=== PATIENT | male | born 1945 | race African-American/Black ===

== ENCOUNTER 2018-09-02 02:17 | Emergency (ER) | payer OTHER ==
[~2018-09-02] VITALS: Ht 182.9 cm; Wt 90.0 kg
[~2018-09-02 02:17] MED LIST: AMLO-511 PO; ATOR40TA28 PO; BENA20 PO; CARV25 PO; CLOP75TA3 PO; FERR-89 PO; GLYB5 PO; METF-960 PO; MULT1CAP32 PO
[2018-09-02] MEDS ORDERED: LOSA25TA41 PO (02:30)
[2018-09-02] MEDS ORDERED: GLIP5 PO (02:30)
[2018-09-02] MEDS ORDERED: HYDR25TA84 PO (02:30)
[2018-09-02] MEDS ORDERED: IOVERSOL 350 MG/ML 100 ML VIAL ONE (02:57)
[2018-09-02] MEDS ORDERED: SODIUM CHLORIDE 0.9% 100 ML ONE (02:57)
[2018-09-02 03:08] LABS: BASOPHILS % (AUTO) 0.5 % (0.0-2.0); EOSINOPHILS % (AUTO) 1.8 % (1.0-6.0); HEMATOCRIT 34.4 % (41-53); HEMOGLOBIN 10.7 g/dL (13.5-17.5); LYMPHOCYTES % (AUTO) 22.1 % (22.0-44.0); MEAN CORPUSCULAR HEMOGLOBIN 26.2 pg (26.0-34.0); MEAN CORPUSCULAR HGB CONC 31.1 G/dL (31.0-37.0); MEAN CORPUSCULAR VOLUME 84 fL (80-100); MONOCYTES # (AUTO) 0.9 K/uL (0.1-1.0); MONOCYTES % (AUTO) 10.4 % (2.0-9.0); NEUTROPHILS # (AUTO) 5.8 K/uL (1.8-7.7); NEUTROPHILS % (AUTO) 65.2 % (40.0-70.0); PLATELET COUNT (AUTO) 197 K/uL (150-450); RED BLOOD CELL COUNT(AUTO) 4.09 MIL/uL (4.50-5.90); RED CELL DISTRIBUTION WIDTH 16.4 % (11.5-14.5)
[2018-09-02] MEDS ORDERED: ATORVASTATIN CALCIUM 40 MG TABLET PO ONE (03:15)
[2018-09-02] MEDS ORDERED: AmLODIPine BESYLATE 5 MG TABLET PO ONE (03:15)
[2018-09-02] MEDS ORDERED: HydrALAZINE HCL 25 MG TABLET PO ONE (03:15)
[2018-09-02] MEDS ORDERED: LOSARTAN POTASSIUM 25 MG TABLET PO ONE (03:15)
[2018-09-02 03:17] LABS: CALCIUM, TOTAL 9.6 mg/dL (8.8-10.5); CREATININE 1.58 mg/dL (0.60-1.30); POTASSIUM 4.2 mmol/L (3.5-5.1)
[2018-09-02 03:25] LABS: ALBUMIN 3.8 g/dL (3.4-5.0); BILIRUBIN,TOTAL 0.3 mg/dL (0.1-1.0); TOTAL PROTEIN, SERUM 7.6 g/dL (6.4-8.2)
[2018-09-02 04:00] VITALS: BP 131/85
== END 2018-09-02 05:00 | disposition short-term general hospital (02) ==
LOC: EMS 02:18
DX: G45.9 Transient cerebral ischemic attack, unspecified (principal); I10 Essential (primary) hypertension; E11.9 Type 2 diabetes mellitus without complications; E78.00 Pure hypercholesterolemia, unspecified; Z79.899 Other long term (current) drug therapy; Z88.2 Allergy status to sulfonamides; Z88.8 Allergy status to other drugs, medicaments and biological substances; Z86.73 Personal history of transient ischemic attack (TIA), and cerebral infarction without residual deficits
CPT/HCPCS: 36415; 70450; 70496; 71045; 80053; 84484; 85025; 85610; 85730; 86850; 86900; 86901; 93005; 99285; J7050; Q9967

== ENCOUNTER 2024-08-05 11:59 | Emergency (ER) | payer OTHER ==
[~2024-08-05] VITALS: Ht 172.7 cm; Wt 84.0 kg
[~2024-08-05 11:59] MED LIST changes: +AMLO-257 PO; -AMLO-511 PO; -BENA20 PO; -CARV25 PO; -CLOP75TA3 PO; +CLOP75TA60 PO; -FERR-89 PO; +FERR325T27 PO; +GLIP5TAB16 PO; -GLYB5 PO; +HYDR25TA84 PO; +LOSA-381 PO; +METF-1211 PO; -METF-960 PO; -MULT1CAP32 PO
[2024-08-05 12:02] VITALS: TEMP 98.2
[2024-08-05] MEDS ORDERED: XALA2.5OS OS (12:11)
[2024-08-05] MEDS ORDERED: FAMO20 PO (12:11)
[2024-08-05 12:45] LABS: BASOPHILS % (AUTO) 0.6 % (0.0-2.0); HEMATOCRIT 37.7 % (41-53); HEMOGLOBIN 12.1 g/dL (13.5-17.5); LYMPHOCYTES # (AUTO) 1.7 K/uL (1.0-4.8); LYMPHOCYTES % (AUTO) 23.9 % (22.0-44.0); MEAN CORPUSCULAR HEMOGLOBIN 27.7 pg (26.0-34.0); MEAN CORPUSCULAR HGB CONC 32.1 G/dL (31.0-37.0); MEAN CORPUSCULAR VOLUME 86 fL (80-100); MONOCYTES # (AUTO) 0.6 K/uL (0.1-1.0); MONOCYTES % (AUTO) 8.3 % (2.0-9.0); NEUTROPHILS # (AUTO) 4.7 K/uL (1.8-7.7); NEUTROPHILS % (AUTO) 65.2 % (40.0-70.0); PLATELET COUNT (AUTO) 201 K/uL (150-450); RED BLOOD CELL COUNT(AUTO) 4.36 MIL/uL (4.50-5.90); RED CELL DISTRIBUTION WIDTH 14.7 % (11.5-14.5); WHITE BLOOD COUNT (AUTO) 7.2 K/uL (4.5-11.0)
[2024-08-05 12:53] LABS: ANION GAP 11 mmol/L (8-16); CALCIUM, TOTAL 9.8 mg/dL (8.8-10.5); CARBON DIOXIDE 26 mmol/L (22-29); CHLORIDE 105 mmol/L (98-107); CREATININE 1.97 mg/dL (0.60-1.30); GLOMERULAR FILTR. RATE CALC 40 mL/min (>60); GLUCOSE,RANDOM 187 mg/dL (70-110); POTASSIUM 4.2 mmol/L (3.5-5.1); SODIUM SERUM 142 mmol/L (136-145); UREA NITROGEN, BLOOD 17 mg/dL (7-18)
[2024-08-05 12:58] LABS: PROTHROMBIN TIME 10.6 SEC (9.4-11.6)
[2024-08-05 13:03] LABS: TROPONIN I-HIGH SENSITIVITY 14 ng/L (<76)
[2024-08-05 13:10] LABS: B-TYPE NATRIURETIC PEPTIDE 53 pg/mL (0-100)
[2024-08-05] MEDS: ONDANSETRON HCL 4 MG/2 ML VIAL IVP ONE (15:35)
[2024-08-05] MEDS: MECLIZINE HCL 25 MG TABLET PO ONE (15:35)
[2024-08-05 15:36] VITALS: BP 153/92; PULSE 93; RESP 17; O2SAT 99
== END 2024-08-05 16:02 | disposition short-term general hospital (02) ==
LOC: EMS 12:01
DX: R42 Dizziness and giddiness (principal); R53.1 Weakness; E86.0 Dehydration; N17.9 Acute kidney failure, unspecified; E11.9 Type 2 diabetes mellitus without complications; I10 Essential (primary) hypertension; E78.00 Pure hypercholesterolemia, unspecified; K21.9 Gastro-esophageal reflux disease without esophagitis; Z88.6 Allergy status to analgesic agent; Z79.02 Long term (current) use of antithrombotics/antiplatelets; Z79.84 Long term (current) use of oral hypoglycemic drugs; Z79.899 Other long term (current) drug therapy
CPT/HCPCS: 99285; 96374; 70450; 71045; 80048; 83880; 84484; 85025; 85610; 85730; 36415; 82962; 93005; J2405